=== PATIENT | male | born 1955 | race African-American/Black ===

== ENCOUNTER 2016-11-10 08:43 | Outpatient (CLI) | payer OTHER ==
[~2016-11-10 08:43] MED LIST: AMLO5TAB4 PO; ASPI81TA2 PO; Docusate Sodium PO; METO25TA20 PO; PHEN100C4 PO; Polyethylene Glycol 3350 PO; QUET400T PO
[2016-11-10] MEDS ORDERED: IOHEXOL-350 100 ML VIAL IV ONE (09:26)
[2016-11-10] MEDS ORDERED: IV NS 0.9% 250 ML IV ONE (09:26)
[2016-11-10] MEDS: METOPROLOL TARTRATE INJ 5 MG/5 ML AMPUL IVP PRN ×2 (10:00→10:15)
[2016-11-10 10:15] VITALS: BP 122/86
[2016-11-10] MEDS ORDERED: NITROGLYCERIN 4.9 GM SPRAY ONE (10:38)
--- NOTE | 2016-11-10 12:46 | NUR ---
[employer]LE [employer] [facility] AND [facility]PONSE AT BED SIDE PT STABLE VS STABLE NO DISTRESS NOTED BELONGINGS AND BAG OF MEDS GIVEN TO EMS TO TRANSPORT PT BACK TO [facility] CTA DONE ALL PT TEACHING DONE PT NEEDS MEET PT HAS GOOD UNDERSTANDING OF DDS PROCESS AND AFTER CARE, REPORT GIVEN TO CELINE CHRISTENSEN PT WILL GO TO ROOM 205 AT [facility] FOR CONTINUITY OF CARE.
== END 2016-11-10 23:59 | disposition home or self-care (01) ==
LOC: CT 08:43
PROVIDERS: ATTEND Internal Medicine Cardiovascular Disease
DX: I25.10 Atherosclerotic heart disease of native coronary artery without angina pectoris (principal); I51.7 Cardiomegaly; E78.00 Pure hypercholesterolemia, unspecified; J98.11 Atelectasis; Z95.2 Presence of prosthetic heart valve; Z98.890 Other specified postprocedural states; F17.210 Nicotine dependence, cigarettes, uncomplicated
CPT/HCPCS: 75574; 93005; J7050; Q9967

== ENCOUNTER 2018-10-05 22:31 | Inpatient (IN) | payer OTHER ==
[~2018-10-05] VITALS: Ht 185.4 cm; Wt 62.6 kg
[~2018-10-05 22:31] MED LIST changes: +ASPI-1169 PO; -ASPI81TA2 PO
[2018-10-06 01:40] VITALS: BP 165/91
[2018-10-06] MEDS ORDERED: OXYC30TA2 PO (02:08)
[2018-10-06] MEDS ORDERED: DIPH50CA38 PO ×2 (02:08)
[2018-10-06] MEDS ORDERED: MAG HYDROX/AL HYDROX/SIMETH 30 ML UDC PO PRN (02:30)
[2018-10-06] MEDS ORDERED: MAGNESIUM HYDROXIDE 30 ML UDC PO PRN (02:30)
[2018-10-06] MEDS ORDERED: Z GUARD REMEDY 2 OZ OINT TP PRN (02:30)
[2018-10-06] MEDS ORDERED: ONDANSETRON HCL/PF 4 MG/2 ML VIAL IVP PRN (02:30)
[2018-10-06 04:00] VITALS: BP 138/91
[2018-10-06] MEDS ORDERED: AMPICILLIN 1 GM VIAL IV ONE (04:00)
[2018-10-06 04:16] VITALS: BP 138/91
[2018-10-06] MEDS ORDERED: AMPICILLIN 1 GM VIAL ONE (04:52)
[2018-10-06 06:26] LABS: APPEARANCE,URINE CLEAR (CLEAR); BILIRUBIN,URINE NEGATIVE (NEGATIVE); BLOOD, URINE TRACE-INTA Ery/uL (NEGATIVE); COLOR,URINE YELLOW (YELLOW); KETONES,URINE NEGATIVE (NEGATIVE); LEUKOCYTE ESTERASE ,URINE NEGATIVE (NEGATIVE); NITRITE, URINE NEGATIVE (NEGATIVE); PROTEIN,URINE 2+ mg/dl (NEGATIVE); UGLUCOSE NEGATIVE (NEGATIVE); UROBILINOGEN,URINE 0.2 EU/dL (0.2)
[2018-10-06 06:48] LABS: BACTERIA,URINE None seen /HPF (None Seen); RBC,URINE 0-2 /HPF (0-2); SQUAMOUS EPITHELIAL CELL,UR 0-2 /HPF (None Seen); WBC,URINE 0-2 /HPF (0-3)
[2018-10-06 07:35] LABS: BASOPHILS % (AUTO) 0.6 % (0.0-2.0); HEMATOCRIT 27 % (39-51); HEMOGLOBIN 8.8 g/dL (13.5-17.5); LYMPHOCYTES # (AUTO) 1.2 /CMM (0.8-4.8); LYMPHOCYTES % (AUTO) 24.5 % (20.0-44.0); MEAN CORPUSCULAR HGB CONC 33 g/dl (31.0-36.0); MEAN CORPUSCULAR VOLUME 88 fL (80-96); MONOCYTES # (AUTO) 0.6 /CMM (0.1-1.30); MONOCYTES % (AUTO) 12.2 % (2.0-12.0); NEUTROPHILS # (AUTO) 2.6 /CMM (1.8-8.9); NEUTROPHILS % (AUTO) 55.7 % (43.0-81.0); PLATELET COUNT (AUTO) 212 /CMM (150-450); RED BLOOD CELL COUNT(AUTO) 3.06 MIL/uL (4.5-6.0); WHITE BLOOD COUNT (AUTO) 4.7 K/uL (4.3-11.0)
[2018-10-06 07:54] LABS: THYROID STIMULATING HORMONE 2.243 uIU/mL (0.358-3.74)
[2018-10-06 07:56] LABS: ALBUMIN 1.6 g/dL (3.4-5.0); BILIRUBIN,TOTAL 0.1 mg/dL (0.2-1.0); CALCIUM, SERUM 8.3 mg/dL (8.5-10.1); CREATININE 1.9 mg/dL (0.6-1.3); MAGNESIUM 1.8 mg/dL (1.8-2.4); PHOSPHORUS 3.5 mg/dL (2.5-4.9); POTASSIUM 4.2 mmol/L (3.5-5.1); TOTAL PROTEIN, SERUM 6.5 g/dL (6.4-8.2)
[2018-10-06 08:00] VITALS: BP 143/89
[2018-10-06] MEDS: PANTOPRAZOLE 40 MG TABLET.DR PO SCH (08:20)
[2018-10-06] MEDS: DOCUSATE SODIUM 250 MG CAPSULE PO SCH ×2 (08:31→16:40)
[2018-10-06] MEDS: METOPROLOL TARTRATE 25 MG TABLET PO SCH ×2 (08:31→17:00)
[2018-10-06] MEDS: ACETAMINOPHEN 325 MG TABLET PO PRN ×2 (08:32→16:07)
[2018-10-06] MEDS: AMLODIPINE BESYLATE 5 MG TABLET PO SCH (08:32)
[2018-10-06] MEDS: ASPIRIN 81 MG TAB.CHEW PO SCH (08:32)
[2018-10-06] MEDS: POLYETHYLENE GLYCOL 3350 17 GM POWD.PACK PO SCH (08:33)
[2018-10-06] MEDS ORDERED: DOCUSATE SODIUM 250 MG PO SCH (09:00)
[2018-10-06] MEDS ORDERED: POLYETHYLENE GLYCOL 17 GM PO SCH (09:00)
[2018-10-06] MEDS ORDERED: DOCUSATE SODIUM 100 MG CAPSULE PO SCH (09:00)
[2018-10-06] MEDS: ENOXAPARIN SODIUM 40 MG/0.4 ML DISP.SYRIN SQ SCH (09:21)
[2018-10-06] MEDS ORDERED: AMPICILLIN 1 GM VIAL IV SCH (10:00)
[2018-10-06 10:46] LABS: CREATININE, URINE 73.2 MG/DL (30.0-125.0); URINE TOTAL PROTEIN 346.8 mg/dL (0-11.9)
[2018-10-06 11:16] LABS: THYROID STIMULATING HORMONE 2.115 uIU/mL (0.358-3.74)
[2018-10-06] MEDS ORDERED: FEE PK DOSING 1 MIN EA MC ONE (11:55)
[2018-10-06] MEDS: AMPICILLIN SODIUM 2 GM in IV NS 0.9% 100 ML IV SCH ×3 (12:26→20:22)
[2018-10-06 15:46] VITALS: BP 143/89
[2018-10-06 20:00] VITALS: BP 131/83
[2018-10-06] MEDS: PHENYTOIN EXTENDED RELEASE 100 MG CAPSULE PO SCH (21:23)
[2018-10-06] MEDS: diphenhydrAMINE HCL 50 MG CAPSULE PO SCH (21:23)
[2018-10-06] MEDS ORDERED: GENTAMICIN 80 MG/2 ML VIAL ONE (21:52)
[2018-10-06] MEDS ORDERED: Medication Not On Formulary EA (Quetiapine Fumarate (Seroquel) 800 MG) PO SCH (22:00)
[2018-10-06] MEDS ORDERED: GENTAMICIN 80 MG in IV D5W 100 ML IV SCH (22:00)
[2018-10-06] MEDS: QUETIAPINE FUMARATE 100 MG TABLET PO SCH (22:11)
[2018-10-07] MEDS: AMPICILLIN SODIUM 2 GM in IV NS 0.9% 100 ML IV SCH ×6 (00:25→21:28)
[2018-10-07 07:00] LABS: BASOPHILS % (AUTO) 0.5 % (0.0-2.0); EOSINOPHILS % (AUTO) 8.5 % (0.0-6.0); HEMATOCRIT 26 % (39-51); HEMOGLOBIN 8.4 g/dL (13.5-17.5); LYMPHOCYTES # (AUTO) 1.2 /CMM (0.8-4.8); LYMPHOCYTES % (AUTO) 29.7 % (20.0-44.0); MEAN CORPUSCULAR HGB CONC 33 g/dl (31.0-36.0); MEAN CORPUSCULAR VOLUME 87 fL (80-96); MONOCYTES # (AUTO) 0.5 /CMM (0.1-1.30); MONOCYTES % (AUTO) 11.8 % (2.0-12.0); NEUTROPHILS % (AUTO) 49.5 % (43.0-81.0); PLATELET COUNT (AUTO) 215 /CMM (150-450); RED BLOOD CELL COUNT(AUTO) 2.97 MIL/uL (4.5-6.0); WHITE BLOOD COUNT (AUTO) 4.1 K/uL (4.3-11.0)
[2018-10-07 07:10] LABS: ALBUMIN 1.5 g/dL (3.4-5.0); BILIRUBIN,TOTAL 0.2 mg/dL (0.2-1.0); CALCIUM, SERUM 8.5 mg/dL (8.5-10.1); CREATININE 1.3 mg/dL (0.6-1.3); MAGNESIUM 1.7 mg/dL (1.8-2.4); PHOSPHORUS 3.2 mg/dL (2.5-4.9); POTASSIUM 3.9 mmol/L (3.5-5.1); TOTAL PROTEIN, SERUM 6.3 g/dL (6.4-8.2)
[2018-10-07 08:00] VITALS: BP 139/79
[2018-10-07] MEDS: POLYETHYLENE GLYCOL 3350 17 GM POWD.PACK PO SCH (08:26)
[2018-10-07] MEDS: DOCUSATE SODIUM 250 MG CAPSULE PO SCH ×2 (08:26→16:11)
[2018-10-07] MEDS: METOPROLOL TARTRATE 25 MG TABLET PO SCH ×2 (08:26→16:12)
[2018-10-07] MEDS: PANTOPRAZOLE 40 MG TABLET.DR PO SCH (08:26)
[2018-10-07] MEDS: AMLODIPINE BESYLATE 5 MG TABLET PO SCH (08:26)
[2018-10-07] MEDS: ASPIRIN 81 MG TAB.CHEW PO SCH (08:27)
[2018-10-07] MEDS: ENOXAPARIN SODIUM 40 MG/0.4 ML DISP.SYRIN SQ SCH (08:32)
[2018-10-07] MEDS: Magnesium 1GM/D5W 100ML PREMIX 100 ML IV SCH ×2 (11:07→12:09)
[2018-10-07 16:00] VITALS: BP 119/74
[2018-10-07] MEDS: HYDROMORPHONE 1 MG/1 ML DISP.SYRIN IV PRN ×2 (17:18→21:33)
[2018-10-07] MEDS: GENTAMICIN 100 MG in IV D5W 100 ML IV SCH (18:10)
[2018-10-07 20:00] VITALS: BP 146/89
[2018-10-07] MEDS: diphenhydrAMINE HCL 50 MG CAPSULE PO SCH (21:36)
[2018-10-07] MEDS: PHENYTOIN EXTENDED RELEASE 100 MG CAPSULE PO SCH (21:37)
[2018-10-07] MEDS: QUETIAPINE FUMARATE 100 MG TABLET PO SCH (21:37)
[2018-10-08] MEDS: AMPICILLIN SODIUM 2 GM in IV NS 0.9% 100 ML IV SCH ×6 (01:20→21:56)
[2018-10-08] MEDS: HYDROMORPHONE 1 MG/1 ML DISP.SYRIN IV PRN ×5 (02:26→23:04)
[2018-10-08 06:36] LABS: BASOPHILS % (AUTO) 0.5 % (0.0-2.0); EOSINOPHILS % (AUTO) 6.3 % (0.0-6.0); HEMATOCRIT 29 % (39-51); HEMOGLOBIN 9.5 g/dL (13.5-17.5); LYMPHOCYTES # (AUTO) 1.4 /CMM (0.8-4.8); LYMPHOCYTES % (AUTO) 27.7 % (20.0-44.0); MEAN CORPUSCULAR HGB CONC 32 g/dl (31.0-36.0); MEAN CORPUSCULAR VOLUME 87 fL (80-96); MONOCYTES # (AUTO) 0.6 /CMM (0.1-1.30); MONOCYTES % (AUTO) 11.8 % (2.0-12.0); NEUTROPHILS # (AUTO) 2.8 /CMM (1.8-8.9); NEUTROPHILS % (AUTO) 53.7 % (43.0-81.0); PLATELET COUNT (AUTO) 242 /CMM (150-450); RED BLOOD CELL COUNT(AUTO) 3.36 MIL/uL (4.5-6.0); WHITE BLOOD COUNT (AUTO) 5.2 K/uL (4.3-11.0)
[2018-10-08 06:49] LABS: CALCIUM, SERUM 8.8 mg/dL (8.5-10.1); CREATININE 1.3 mg/dL (0.6-1.3); MAGNESIUM 1.9 mg/dL (1.8-2.4); PHOSPHORUS 3.5 mg/dL (2.5-4.9)
[2018-10-08 08:00] VITALS: BP 163/97
[2018-10-08 08:17] VITALS: BP 163/97
[2018-10-08] MEDS: DOCUSATE SODIUM 250 MG CAPSULE PO SCH ×2 (08:53→17:23)
[2018-10-08] MEDS: ASPIRIN 81 MG TAB.CHEW PO SCH (08:54)
[2018-10-08] MEDS: PANTOPRAZOLE 40 MG TABLET.DR PO SCH (08:54)
[2018-10-08] MEDS: METOPROLOL TARTRATE 25 MG TABLET PO SCH ×2 (08:55→17:24)
[2018-10-08] MEDS: AMLODIPINE BESYLATE 5 MG TABLET PO SCH (08:55)
[2018-10-08] MEDS: POLYETHYLENE GLYCOL 3350 17 GM POWD.PACK PO SCH (08:55)
[2018-10-08] MEDS: ENOXAPARIN SODIUM 40 MG/0.4 ML DISP.SYRIN SQ SCH (08:58)
[2018-10-08] MEDS ORDERED: HYDROGEL DRESSING 90 GM TUBE TP PRN (09:00)
[2018-10-08] MEDS: HYDROGEL DRESSING 90 GM TUBE TP SCH (09:17)
[2018-10-08] MEDS ORDERED: GENT100P5 IV (10:44)
[2018-10-08] MEDS ORDERED: AMPI2VIA14 IJ (10:44)
[2018-10-08 16:00] VITALS: BP 122/78
[2018-10-08 16:28] VITALS: BP 122/78
[2018-10-08] MEDS: GENTAMICIN 100 MG in IV D5W 100 ML IV SCH (18:37)
[2018-10-08 20:00] VITALS: BP 125/74
[2018-10-08] MEDS: PHENYTOIN EXTENDED RELEASE 100 MG CAPSULE PO SCH (21:57)
[2018-10-08] MEDS: QUETIAPINE FUMARATE 100 MG TABLET PO SCH (21:58)
[2018-10-08] MEDS: diphenhydrAMINE HCL 50 MG CAPSULE PO SCH (21:59)
[2018-10-09] MEDS: AMPICILLIN SODIUM 2 GM in IV NS 0.9% 100 ML IV SCH ×6 (01:59→21:56)
[2018-10-09] MEDS: HYDROMORPHONE 1 MG/1 ML DISP.SYRIN IV PRN ×5 (04:47→22:10)
[2018-10-09 07:51] LABS: CALCIUM, SERUM 8.2 mg/dL (8.5-10.1); CREATININE 1.3 mg/dL (0.6-1.3); MAGNESIUM 1.7 mg/dL (1.8-2.4); PHOSPHORUS 3.7 mg/dL (2.5-4.9); POTASSIUM 4.1 mmol/L (3.5-5.1)
[2018-10-09 08:00] VITALS: BP 149/92
[2018-10-09 08:09] LABS: BASOPHILS % (AUTO) 0.7 % (0.0-2.0); EOSINOPHILS % (AUTO) 7.3 % (0.0-6.0); HEMATOCRIT 29 % (39-51); HEMOGLOBIN 9.3 g/dL (13.5-17.5); LYMPHOCYTES # (AUTO) 1.4 /CMM (0.8-4.8); LYMPHOCYTES % (AUTO) 27.2 % (20.0-44.0); MEAN CORPUSCULAR HGB CONC 33 g/dl (31.0-36.0); MEAN CORPUSCULAR VOLUME 87 fL (80-96); MONOCYTES # (AUTO) 0.5 /CMM (0.1-1.30); MONOCYTES % (AUTO) 10.4 % (2.0-12.0); NEUTROPHILS # (AUTO) 2.7 /CMM (1.8-8.9); NEUTROPHILS % (AUTO) 54.4 % (43.0-81.0); PLATELET COUNT (AUTO) 260 /CMM (150-450)
[2018-10-09] MEDS: POLYETHYLENE GLYCOL 3350 17 GM POWD.PACK PO SCH (08:30)
[2018-10-09] MEDS: PANTOPRAZOLE 40 MG TABLET.DR PO SCH (08:30)
[2018-10-09] MEDS: ASPIRIN 81 MG TAB.CHEW PO SCH (08:31)
[2018-10-09] MEDS: DOCUSATE SODIUM 250 MG CAPSULE PO SCH ×2 (08:31→17:17)
[2018-10-09] MEDS: METOPROLOL TARTRATE 25 MG TABLET PO SCH ×2 (08:31→17:17)
[2018-10-09] MEDS: AMLODIPINE BESYLATE 5 MG TABLET PO SCH (08:31)
[2018-10-09] MEDS: ENOXAPARIN SODIUM 40 MG/0.4 ML DISP.SYRIN SQ SCH (08:34)
[2018-10-09 09:10] LABS: *SPE A/G RATIO 0.6 (0.7-1.7); *SPE ALBUMIN 2.1 g/dL (2.9-4.4); *SPE ALPHA-1-GLOBULIN 0.2 g/dL (0.0-0.4); *SPE ALPHA-2-GLOBULIN 0.8 g/dL (0.4-1.0); *SPE BETA GLOBULIN 1.4 g/dL (0.7-1.3); *SPE GLOBULIN, TOTAL 3.8 g/dL (2.2-3.9); *SPE M-SPIKE 0.5 g/dL (Not Observed); *SPEGAMMA GLOBULIN 1.4 g/dL (0.4-1.8)
[2018-10-09] MEDS: HYDROGEL DRESSING 90 GM TUBE TP SCH (10:13)
[2018-10-09] MEDS: Magnesium 1GM/D5W 100ML PREMIX 100 ML IV SCH ×2 (11:39→13:29)
[2018-10-09 12:12] LABS: COMPLEMENT C3, SERUM 109 mg/dL (82-167); COMPLEMENT C4, SERUM 32 mg/dL (14-44)
[2018-10-09 16:00] VITALS: BP 122/77
[2018-10-09] MEDS: GENTAMICIN 100 MG in IV D5W 100 ML IV SCH (17:12)
[2018-10-09] MEDS: ENSURE ENLIVE 237 ML LIQUID (VANILLA) PO SCH (17:18)
[2018-10-09 20:00] VITALS: BP 133/67
[2018-10-09] MEDS: PHENYTOIN EXTENDED RELEASE 100 MG CAPSULE PO SCH (22:11)
[2018-10-09] MEDS: QUETIAPINE FUMARATE 100 MG TABLET PO SCH (22:12)
[2018-10-09] MEDS: diphenhydrAMINE HCL 50 MG CAPSULE PO SCH (22:49)
[2018-10-10] MEDS: AMPICILLIN SODIUM 2 GM in IV NS 0.9% 100 ML IV SCH ×5 (01:41→16:57)
[2018-10-10] MEDS: HYDROMORPHONE 1 MG/1 ML DISP.SYRIN IV PRN ×4 (02:08→14:22)
[2018-10-10 07:30] LABS: BASOPHILS % (AUTO) 0.8 % (0.0-2.0); EOSINOPHILS % (AUTO) 7.2 % (0.0-6.0); HEMATOCRIT 31 % (39-51); HEMOGLOBIN 9.9 g/dL (13.5-17.5); LYMPHOCYTES # (AUTO) 1.3 /CMM (0.8-4.8); LYMPHOCYTES % (AUTO) 25.1 % (20.0-44.0); MEAN CORPUSCULAR HGB CONC 32 g/dl (31.0-36.0); MEAN CORPUSCULAR VOLUME 87 fL (80-96); MONOCYTES # (AUTO) 0.6 /CMM (0.1-1.30); NEUTROPHILS # (AUTO) 2.8 /CMM (1.8-8.9); NEUTROPHILS % (AUTO) 55.9 % (43.0-81.0); PLATELET COUNT (AUTO) 270 /CMM (150-450); RED BLOOD CELL COUNT(AUTO) 3.54 MIL/uL (4.5-6.0); WHITE BLOOD COUNT (AUTO) 5.1 K/uL (4.3-11.0)
[2018-10-10 07:47] LABS: CALCIUM, SERUM 8.2 mg/dL (8.5-10.1); CREATININE 1.3 mg/dL (0.6-1.3); PHOSPHORUS 3.4 mg/dL (2.5-4.9)
[2018-10-10 08:00] VITALS: BP 132/82
[2018-10-10] MEDS ORDERED: ENSURE ENLIVE CHOC 237 ML CAN PO SCH (08:00)
[2018-10-10] MEDS: DOCUSATE SODIUM 250 MG CAPSULE PO SCH ×2 (08:32→16:57)
[2018-10-10] MEDS: POLYETHYLENE GLYCOL 3350 17 GM POWD.PACK PO SCH (08:32)
[2018-10-10] MEDS: ASPIRIN 81 MG TAB.CHEW PO SCH (08:32)
[2018-10-10] MEDS: PANTOPRAZOLE 40 MG TABLET.DR PO SCH (08:32)
[2018-10-10] MEDS: AMLODIPINE BESYLATE 5 MG TABLET PO SCH (08:32)
[2018-10-10] MEDS: METOPROLOL TARTRATE 25 MG TABLET PO SCH ×2 (08:33→16:58)
[2018-10-10] MEDS: ENOXAPARIN SODIUM 40 MG/0.4 ML DISP.SYRIN SQ SCH (08:34)
[2018-10-10] MEDS: HYDROGEL DRESSING 90 GM TUBE TP SCH (08:34)
[2018-10-10] MEDS: ENSURE ENLIVE 237 ML LIQUID (VANILLA) PO SCH ×3 (08:35→17:50)
[2018-10-10 16:00] VITALS: BP 136/80
[2018-10-10 16:58] VITALS: BP 136/80
[2018-10-10] MEDS ORDERED: FERROUS SULFATE (325 MG) 325 MG/TAB TABLET PO SCH (17:00)
[2018-10-10] MEDS: GENTAMICIN 100 MG in IV D5W 100 ML IV SCH (17:50)
[2018-10-12 12:07] LABS: BETA-2 MICROGLOBULIN, SERUM 5.6 mg/L (0.6-2.4)
== END 2018-10-10 18:40 | DRG 206 ==
LOC: MED 10-06 01:07 → TELE-TD 10-07 09:08 → MED 10-07 09:26
PROVIDERS: ADMIT Nurse Practitioner Acute Care; ATTEND Nurse Practitioner Acute Care
DX: T82.6XXA Infection and inflammatory reaction due to cardiac valve prosthesis, initial encounter (principal); N17.0 Acute kidney failure with tubular necrosis; E43 Unspecified severe protein-calorie malnutrition; E83.42 Hypomagnesemia; D47.2 Monoclonal gammopathy; F20.0 Paranoid schizophrenia; Y83.9 Surgical procedure, unspecified as the cause of abnormal reaction of the patient, or of later complication, without mention of misadventure at the time of the procedure; Y92.009 Unspecified place in unspecified non-institutional (private) residence as the place of occurrence of the external cause; N18.9 Chronic kidney disease, unspecified; G40.909 Epilepsy, unspecified, not intractable, without status epilepticus; I25.10 Atherosclerotic heart disease of native coronary artery without angina pectoris; F17.210 Nicotine dependence, cigarettes, uncomplicated; I25.2 Old myocardial infarction; Z96.643 Presence of artificial hip joint, bilateral; Z95.3 Presence of xenogenic heart valve; Z91.19 Patient's noncompliance with other medical treatment and regimen; Z76.5 Malingerer [conscious simulation]; Z59.0 Homelessness; M19.90 Unspecified osteoarthritis, unspecified site; I70.0 Atherosclerosis of aorta; I50.9 Heart failure, unspecified; I13.0 Hypertensive heart and chronic kidney disease with heart failure and stage 1 through stage 4 chronic kidney disease, or unspecified chronic kidney disease; S81.002A Unspecified open wound, left knee, initial encounter; F19.11 Other psychoactive substance abuse, in remission; B19.20 Unspecified viral hepatitis C without hepatic coma; Z68.1 Body mass index [BMI] 19.9 or less, adult
CPT/HCPCS: 36415; 76705-TC; 76770-TC; 77075-TC; 80048-TC; 80053-TC; 80061-TC; 80170-TC; 80185-TC; 80305; 81000-TC; 82232; 82550-TC; 82570-TC; 82728-TC; 82784; 83540-TC; 83735-TC; 83970; 84100-TC; 84155; 84155-TC; 84165; 84300-TC; 84439-TC; 84443-TC; 85025-TC; 85652-TC; 86334; 86706; 86803; 87040-TC; 87081-TC; 87340; 87806; 93307-TC; 97116-TC; 97530-TC; A4216; A6248; G0378; J0290; J1170; J1580; J1650; J3475; J7030; J7060; Q0163